=== PATIENT | male | born 1995 | race Caucasian/White ===

== ENCOUNTER → 2019-10-12 07:33 | Outpatient (CLI) | payer OTHER, SELFPAY ==
[2019-10-12 07:16] VITALS: BMI 24.9
--- NOTE | 2019-10-12 07:43 | RAD_ITS ---
STUDY: X-RAY - RIGHT HAND, ATTENTION INDEX FINGER REASON FOR EXAM: Smashing injury of distal finger. TECHNIQUE: 3 view(s) of the finger were obtained. COMPARISON: None. FINDINGS: Normal metacarpal head. Normal metacarpophalangeal joint. Normal proximal phalanx. Normal middle phalanx. Normal distal phalanx. Normal proximal interphalangeal joint. Normal distal interphalangeal joint. RAD/Finger(s) Min 2 Views IMPRESSION: Normal x-ray examination of the right index finger. Electronically Signed: Toy Gil MD at 8:23 EDT Tel , Service support ,
== END ==
PROVIDERS: Referring Provider Physician Assistant; Visit Provider Physician Assistant
DX: S69.91XA Unspecified injury of right wrist, hand and finger(s), initial encounter (principal)
CPT/HCPCS: 73140